=== PATIENT | female | born 1940 | race Caucasian/White ===

== ENCOUNTER 2021-04-21 11:59 | Inpatient (IN) | payer MEDICARE, OTHER ==
[~2021-04-21] VITALS: Ht 152.4 cm; Wt 49.9 kg
[2021-04-21 12:57] LABS: HEMOGLOBIN 11.2 gm/dl (12.3-15.3); RED BLOOD COUNT 3.42 M/UL (4.00-5.10); WHITE BLOOD COUNT 5.8 K/UL (4.5-11.0)
[2021-04-21 13:26] LABS: BUN/CREATININE RATIO 6 (0-10)
[2021-04-21] MEDS ORDERED: CARVEDILOL6.25 MG PO ×2 (15:35→15:37)
[2021-04-21] MEDS ORDERED: NICARDIPINE HCL20 MG PO (15:39)
[2021-04-21] MEDS ORDERED: LEVOTHYROXINE88 MCG PO (15:40)
[2021-04-21] MEDS ORDERED: CATAPRES 0.1MG0.1 MG PO (15:40)
[2021-04-21] MEDS ORDERED: ATORVASTATIN CA40 MG PO (15:41)
[2021-04-22 03:10] LABS: HEMOGLOBIN 9.5 gm/dl (12.3-15.3); WHITE BLOOD COUNT 5.6 K/UL (4.5-11.0)
[2021-04-22 03:14] LABS: RED BLOOD COUNT 2.92 M/UL (4.00-5.10)
[2021-04-22 17:23] LABS: BODY FLUID SOURCE PERITONEAL
[2021-04-22 17:24] LABS: RBC (AUTOMATED) 200 (0-100000); WBC (AUTOMATED) 3352 (0-500)
[2021-04-23 05:33] LABS: HEMOGLOBIN 11.3 gm/dl (12.3-15.3)
[2021-04-23 05:41] LABS: RED BLOOD COUNT 3.51 M/UL (4.00-5.10); WHITE BLOOD COUNT 8.6 K/UL (4.5-11.0)
[2021-04-23 08:14] LABS: HBSAG SCREEN Negative (Negative); HEP A AB, IGM Negative (Negative); HEP B CORE AB, IGM Negative (Negative); HEP C VIRUS AB <0.1 (0.0-0.9)
[2021-04-24 03:04] LABS: HEMOGLOBIN 10.9 gm/dl (12.3-15.3); RED BLOOD COUNT 3.33 M/UL (4.00-5.10); WHITE BLOOD COUNT 7.8 K/UL (4.5-11.0)
[2021-04-24 03:35] LABS: BUN/CREATININE RATIO 5 (0-10)
[2021-04-25 03:45] LABS: HEMOGLOBIN 9.9 gm/dl (12.3-15.3); RED BLOOD COUNT 3.06 M/UL (4.00-5.10)
[2021-04-25 03:47] LABS: WHITE BLOOD COUNT 10.1 K/UL (4.5-11.0)
[2021-04-26 05:28] LABS: HEMOGLOBIN 9.9 gm/dl (12.3-15.3); RED BLOOD COUNT 3.08 M/UL (4.00-5.10); WHITE BLOOD COUNT 8.8 K/UL (4.5-11.0)
[2021-04-27 06:32] LABS: HEMOGLOBIN 10.2 gm/dl (12.3-15.3); RED BLOOD COUNT 3.18 M/UL (4.00-5.10)
[2021-04-28] MEDS ORDERED: FORTAZ IV ADV1000 MG IV (15:09)
[2021-04-28] MEDS ORDERED: CARVEDILOL3.125 MG PO (15:09)
--- NOTE | 2021-04-28 17:22 | NUR ---
PATIENT REQUESTS REMOVAL OF CONTRERAS CATHETER.
== END 2021-04-28 18:03 | disposition home or self-care (01) | DRG 286 ==
LOC: ER1 11:59 → PROG CARE 12:42 → CDU 12:42 → PROG CARE 15:13 → M/S 04-22 13:30
PROVIDERS: Emergency Medicine; Hospitalist; Internal Medicine Cardiovascular Disease; Physician Assistant; Physician Assistant Medical; ADMIT Internal Medicine
PROC: 4A023N7 Measurement of Cardiac Sampling and Pressure, Left Heart, Percutaneous Approach (ICD-10-PCS; 2021-04-21)
PROC: B2111ZZ Fluoroscopy of Multiple Coronary Arteries using Low Osmolar Contrast (ICD-10-PCS; 2021-04-21)
PROC: B2151ZZ Fluoroscopy of Left Heart using Low Osmolar Contrast (ICD-10-PCS; 2021-04-21)
PROC: B24BZZ4 Ultrasonography of Heart with Aorta, Transesophageal (ICD-10-PCS; principal; 2021-04-22)
PROC: 3E1M39Z Irrigation of Peritoneal Cavity using Dialysate, Percutaneous Approach (ICD-10-PCS; 2021-04-23)
PROC: 0JHF3XZ Insertion of Tunneled Vascular Access Device into Left Upper Arm Subcutaneous Tissue and Fascia, Percutaneous Approach (ICD-10-PCS; 2021-04-27)
PROC: 02HV33Z Insertion of Infusion Device into Superior Vena Cava, Percutaneous Approach (ICD-10-PCS; 2021-04-27)
PROC: 5A1D70Z Performance of Urinary Filtration, Intermittent, Less than 6 Hours Per Day (ICD-10-PCS; 2021-04-27)
DX: I25.10 Atherosclerotic heart disease of native coronary artery without angina pectoris (principal); K65.8 Other peritonitis; N18.6 End stage renal disease; T82.49XA Other complication of vascular dialysis catheter, initial encounter; I12.0 Hypertensive chronic kidney disease with stage 5 chronic kidney disease or end stage renal disease; N13.39 Other hydronephrosis; I16.9 Hypertensive crisis, unspecified; I16.1 Hypertensive emergency; Z20.822 Contact with and (suspected) exposure to COVID-19; E11.22 Type 2 diabetes mellitus with diabetic chronic kidney disease; Y84.0 Cardiac catheterization as the cause of abnormal reaction of the patient, or of later complication, without mention of misadventure at the time of the procedure; B96.1 Klebsiella pneumoniae [K. pneumoniae] as the cause of diseases classified elsewhere; E03.9 Hypothyroidism, unspecified; N81.10 Cystocele, unspecified; Z99.2 Dependence on renal dialysis; Z90.710 Acquired absence of both cervix and uterus; Z88.8 Allergy status to other drugs, medicaments and biological substances; Z82.49 Family history of ischemic heart disease and other diseases of the circulatory system
CPT/HCPCS: ECHO; 36415; 71045; 74018; 74150; 77001; 80048; 80053; 80061; 80074; 80076; 80202; 81001; 82550; 82553; 82962; 83690; 83735; 83874; 84484; 85025; 85027; 85610; 85730; 87040; 87070; 87077; 87186; 87205; 89051; 90935; 90937; 90947; 93005; 93306; 96372; 96374; 96375; 96376; 97110-GP-CQ; 97116-GP-CQ; 97161; 99152; 99153; 99285; C1750; C1752; C1769; C1887; C1894; G0378; J0360; J1100; J1335; J1642; J1644; J1650; J2001; J2270; J2405; J2704; J3010; J3370; J7040; J7070; J7120; U0002

== ENCOUNTER 2021-10-19 16:32 | Emergency (ER) | payer MEDICARE, OTHER ==
[~2021-10-19 16:32] MED LIST: ATORVASTATIN CA40 MG PO; CARVEDILOL3.125 MG PO; CARVEDILOL6.25 MG PO; CATAPRES 0.1MG0.1 MG PO; FORTAZ IV ADV1000 MG IV; LEVOTHYROXINE88 MCG PO; NICARDIPINE HCL20 MG PO
== END 2021-10-19 17:55 | disposition left against medical advice (07) ==
LOC: ER1 16:32
DX: R10.84 Generalized abdominal pain (principal); N18.6 End stage renal disease; Z91.040 Latex allergy status; Z88.8 Allergy status to other drugs, medicaments and biological substances; E10.22 Type 1 diabetes mellitus with diabetic chronic kidney disease
CPT/HCPCS: 71045; 99283

== ENCOUNTER 2021-10-29 12:49 | Inpatient (IN) | payer MEDICARE, OTHER ==
[~2021-10-29] VITALS: Ht 162.6 cm; Wt 45.4 kg
[2021-10-29 13:58] LABS: HEMOGLOBIN 11.6 gm/dl (12.3-15.3); RED BLOOD COUNT 3.7 M/UL (4.00-5.10); WHITE BLOOD COUNT 12.1 K/UL (4.5-11.0)
[2021-10-29 14:30] LABS: BUN/CREATININE RATIO 6 (0-10)
[2021-10-30 04:04] LABS: HEMOGLOBIN 9.7 gm/dl (12.3-15.3); WHITE BLOOD COUNT 10.8 K/UL (4.5-11.0)
[2021-10-30 04:05] LABS: RED BLOOD COUNT 3.13 M/UL (4.00-5.10)
[2021-10-30] MEDS ORDERED: CLONIDINE HCL0.3 MG PO (12:21)
[2021-10-30] MEDS ORDERED: HYDRALAZINE HCL25 MG PO (12:21)
[2021-10-30] MEDS ORDERED: LANTUS SOL100 UNIT/1 SQ (12:22)
[2021-10-31 03:48] LABS: RED BLOOD COUNT 3.25 M/UL (4.00-5.10); WHITE BLOOD COUNT 12.1 K/UL (4.5-11.0)
--- NOTE | 2021-10-31 20:13 | NUR ---
NOTIFIED DR COCHRAN OF PT'S BLOOD PRESSURE AND SCHEDULED DOSE OF CLONIDINE. HELD THIS DOSE ORDERED. WILL CONTINUE TO MONITOR.
--- NOTE | 2021-10-31 23:17 | NUR ---
NOTIFIED JEAN CLAUDE HIGH REACH OPERATOR DIALYSIS NURSE THAT DIALYSIS MACHINE WAS ALARMING "PT LINE BLOCKED". REPOSITIONED PT SUGGESTED BY JEAN CLAUDE. SHE STATED THAT SHE WOULD COME CHECK ON PATIENT. DIALYSIS MACHINE DRAINING. PT RESTING QUIETLY; FREE OF DISTRESS. WILL CONTINUE TO MONITOR.
--- NOTE | 2021-11-01 00:28 | NUR ---
JEAN CLAUDE THE DIALYSIS NURSE ON FLOOR TO CHECK ON PATIENT. PT RESTING QUIETLY, FREE OF COMPLICATIONS. WILL CONTINUE TO MONITOR.
[2021-11-01 10:35] LABS: BODY FLUID SOURCE PLEURAL
[2021-11-01 10:36] LABS: MONONUCLEAR CELLS 64.2 (75-100); POLYMORPHONUCLEAR % 35.8 (0-25); RBC (AUTOMATED) 8500 (0-100000); WBC (AUTOMATED) 458 (0-500)
[2021-11-01 11:12] LABS: LDH, BODY FLUID 204 U/L
== END 2021-11-01 22:53 | disposition short-term general hospital (02) | DRG 186 ==
LOC: ER1 12:49 → CDU 19:40 → MED SURG 4 19:40
PROVIDERS: Emergency Medicine; Internal Medicine Nephrology; ADMIT Internal Medicine
PROC: 3E03329 Introduction of Other Anti-infective into Peripheral Vein, Percutaneous Approach (ICD-10-PCS; 2021-10-29)
PROC: 3E1M39Z Irrigation of Peritoneal Cavity using Dialysate, Percutaneous Approach (ICD-10-PCS; 2021-10-30)
PROC: 0W993ZZ Drainage of Right Pleural Cavity, Percutaneous Approach (ICD-10-PCS; principal; 2021-11-01)
DX: J90 Pleural effusion, not elsewhere classified (principal); N18.6 End stage renal disease; J18.9 Pneumonia, unspecified organism; I12.0 Hypertensive chronic kidney disease with stage 5 chronic kidney disease or end stage renal disease; N13.30 Unspecified hydronephrosis; E87.1 Hypo-osmolality and hyponatremia; K57.90 Diverticulosis of intestine, part unspecified, without perforation or abscess without bleeding; I25.10 Atherosclerotic heart disease of native coronary artery without angina pectoris; E11.22 Type 2 diabetes mellitus with diabetic chronic kidney disease; Z20.822 Contact with and (suspected) exposure to COVID-19; A08.4 Viral intestinal infection, unspecified; Z99.2 Dependence on renal dialysis; Z90.710 Acquired absence of both cervix and uterus; Z91.040 Latex allergy status; Z88.8 Allergy status to other drugs, medicaments and biological substances; Z82.49 Family history of ischemic heart disease and other diseases of the circulatory system; Z90.49 Acquired absence of other specified parts of digestive tract; Z79.899 Other long term (current) drug therapy
CPT/HCPCS: 36415; 71045; 71046; 71250; 73030; 80048; 80053; 81001; 82550; 82553; 82728; 82945; 82962; 83540; 83550; 83605; 83615; 83690; 83735; 83874; 84157; 84484; 85025; 86140; 87040; 87205; 87206; 89051; 90945; 90947; 93005; C1729; J0692; J1335; J2270; J2405; J2543; Q5106; U0002

== ENCOUNTER → 2021-11-12 | Outpatient (CLI) | payer MEDICARE, OTHER ==
[~2021-11-12] MED LIST changes: +CLONIDINE HCL0.3 MG PO; +HYDRALAZINE HCL25 MG PO; +LANTUS SOL100 UNIT/1 SQ
== END ==
LOC: KOH-I 13:01
DX: J90 Pleural effusion, not elsewhere classified (principal); J98.11 Atelectasis
CPT/HCPCS: 71046

== ENCOUNTER 2021-12-19 13:10 | Observation (INO) | payer MEDICARE, OTHER ==
[~2021-12-19] VITALS: Ht 162.6 cm; Wt 40.8 kg
[~2021-12-19 13:10] MED LIST changes: +COREG 12.5MG12.5 MG PO; +EUTHYROX88 MCG PO; +FLONASE ALLER15.8 ML; +METOCLOPRAMIDE H5 MG PO; +NORVASC2.5 MG PO; +PHENERGAN 25 MG25 M1 PO; +PROTONIX 40 MG40 M1 PO
[2021-12-19 15:47] LABS: HEMOGLOBIN 12.3 gm/dl (12.3-15.3); RED BLOOD COUNT 3.82 M/UL (4.00-5.10); WHITE BLOOD COUNT 8.4 K/UL (4.5-11.0)
[2021-12-19 17:24] LABS: BODY FLUID SOURCE PERITONEAL; MONONUCLEAR CELLS 95.5 (75-100); POLYMORPHONUCLEAR % 4.5 (0-25); RBC (AUTOMATED) 200 (0-100000); WBC (AUTOMATED) 134 (0-500)
[2021-12-19 17:25] LABS: TOTAL PROTEIN, BODY FLUID 0.3 gm/dL
[2021-12-20 04:11] LABS: HEMOGLOBIN 11.5 gm/dl (12.3-15.3); RED BLOOD COUNT 3.58 M/UL (4.00-5.10); WHITE BLOOD COUNT 6.7 K/UL (4.5-11.0)
[2021-12-20] MEDS ORDERED: BENTYL 10MG CAP10 MG PO (09:35)
[2021-12-20] MEDS ORDERED: ENULOSE10 GM/15 M PO (10:19)
== END 2021-12-20 11:14 | disposition home or self-care (01) ==
LOC: ER1 13:10 → CDU 17:39 → M/S 19:52
PROVIDERS: Emergency Medicine; ADMIT Internal Medicine Infectious Disease
DX: E11.43 Type 2 diabetes mellitus with diabetic autonomic (poly)neuropathy (principal); K31.84 Gastroparesis; K20.90 Esophagitis, unspecified without bleeding; I25.10 Atherosclerotic heart disease of native coronary artery without angina pectoris; I12.0 Hypertensive chronic kidney disease with stage 5 chronic kidney disease or end stage renal disease; E11.22 Type 2 diabetes mellitus with diabetic chronic kidney disease; N18.6 End stage renal disease; Z20.822 Contact with and (suspected) exposure to COVID-19; Z99.2 Dependence on renal dialysis; Z88.8 Allergy status to other drugs, medicaments and biological substances; Z91.040 Latex allergy status; Z91.041 Radiographic dye allergy status; Z79.4 Long term (current) use of insulin; Z79.890 Hormone replacement therapy; Z79.899 Other long term (current) drug therapy
CPT/HCPCS: 0240U; 36415; 36600; 71045; 80048; 80053; 82550; 82553; 82803; 82962; 83036; 83605; 83690; 84157; 84484; 85025; 87040; 87205; 89051; 90947; 93005; 96374; 96375; 96376; 99285; C9113; G0378; J2270; J2405; J3370; J7030